=== PATIENT | female | born 1980 | race Caucasian/White ===

== ENCOUNTER → 2018-07-07 15:54 | Outpatient (CLI) | payer OTHER, SELFPAY ==
--- NOTE | 2018-07-07 15:57 | DI.MRI.S_ITS ---
PROCEDURE: MR CERVICAL SPINE WO CON INDICATIONS: Bilateral hand tingling, burning sensation. Headaches. TECHNIQUE: Noncontrast sagittal T1 spin echo and T2 fast spin echo, sagittal STIR, foraminal oblique sagittal T2 fast spin echo, and axial gradient echo or T2 fast spin echo through the cervical spine. COMPARISON: [facility], , SPINE CERVICAL 2 OR 3VW, 10/20/2015, 11:37. [facility], , SPINE CERVICAL 2 OR 3VW, 05/23/2016, 14:04. [facility], CR, CERVICAL SPINE 2 OR 3 VIEWS, 10/05/2015, 8:45. [facility], MR, C-SPINE W&WO CONTRAST, 07/11/2015, 11:21. FINDINGS: Image quality: Excellent. Alignment and Curvature: There is streaking of cervical curvature; otherwise normal bony alignment. Bone Marrow: Marrow signal is obscure by metallic artifacts from C3 to C7. There is anterior fusion at C4-C7. There is a disc prosthesis at the C3-C4. Spinal Cord: Visualized spinal cord has normal size and signal. No cerebellar tonsillar herniation. Paraspinous Soft Tissues: No paravertebral masses. Prevertebral soft tissues are normal in thickness. C2-C3: Mild loss of disc height and disc desiccation. There is minimal posterior disc bulge. Mild bilateral facet arthropathy. The central canal is minimally narrowed. No foraminal stenosis. No significant change from the last exam of 07/11/2015. C3-C4: Discectomy with a metallic disc prosthesis. Metallic artifacts partially obscures this area. Mild bilateral facet arthropathy. The central canal is moderately narrowed. Mild bilateral foraminal stenosis. Overall, there is improvement compared to the last exam on 07/11/2015. C4-C5: Surgically fused. Metallic artifacts partially obscures this area. Mild central canal stenosis. Mild bilateral foraminal stenosis. No significant change from the last exam of 07/11/2015. . C5-C6: Surgically fused. Metallic artifacts partially obscures this area. Mild central canal stenosis. Mild bilateral foraminal stenosis. No significant change from the last exam of 07/11/2015. C6-C7: Surgically fused. Metallic artifacts partially obscures this area. Mild central canal stenosis. Mild bilateral foraminal stenosis. No significant change from the last exam of 07/11/2015. C7-T1: Normal appearance. IMPRESSION: 1. Multilevel degenerative and postsurgical changes as described. 2. Multilevel central canal stenosis, moderate at C3-C4 and mild at multiple other levels. 3. Multilevel mild foraminal stenosis as described. Dictated by: Jaspal Bear M.D. on 07/07/2018 at 17:21 Approved by: Jaspal Bear M.D. on 07/07/2018 at 17:33
== END ==
PROVIDERS: Visit Provider Physical Medicine & Rehabilitation
DX: R51 Headache (principal); R20.2 Paresthesia of skin; M47.812 Spondylosis without myelopathy or radiculopathy, cervical region; M48.02 Spinal stenosis, cervical region; M79.2 Neuralgia and neuritis, unspecified; G89.29 Other chronic pain; Z98.1 Arthrodesis status; Z98.890 Other specified postprocedural states
CPT/HCPCS: 72141

== ENCOUNTER 2018-11-17 08:54 | Outpatient (CLI) | payer OTHER, SELFPAY ==
[2018-11-17] VITALS (8 sets, daily range): BP systolic 112–137; BP diastolic 67–84; PULSE 79–89; RESP 16–18; TEMP 36.8; O2SAT 99–100
--- NOTE | 2018-11-17 08:55 | DI.RAD.S_ITS ---
PROCEDURE: PAIN C/T INTERLAMINAR INJECT INDICATIONS: C7-T1 tl KATHY FINDINGS: Fluoroscopic spot filming was performed to verify placement of spinal needles at the C7-T1 level. Appropriate location(s) of the needle tip(s) was confirmed by injection of iodinated contrast. Dictated by: Isaiah Salazar M.D. on 11/17/2018 at 12:08 Approved by: Isaiah Salazar M.D. on 11/17/2018 at 12:09
[2018-11-17] MEDS: MIDAZOLAM 5 MG/5 ML VIAL IV (10:03)
[2018-11-17] MEDS: fentaNYL 100 MCG/2 ML INJ 50 MCG IV (10:03)
[2018-11-17] MEDS: DEXAMETHASONE 10 MG/ML VIAL 20 MG INJ (10:11)
[2018-11-17] MEDS: IOPAMIDOL 15 ML VIAL 3 ML INJ (10:11)
[2018-11-17] MEDS: LIDOCAINE 1% 20 ML INJ 5 ML INJ (10:11)
--- NOTE | 2018-11-17 10:15 | PC.NURSE ---
ASSISTING PT OFF TABLE AND TRANSPORTING TO POST PROC AREA IN STABLE CONDITION
--- NOTE | 2018-11-17 10:20 | PM.PROC.1 ---
Procedures Date/Time Date of procedure: 11/17/18 Time of procedure: 10:20 General Procedure description: PREOP DIAGNOSIS 1. CERVICAL STENOSIS, 2. CERVICAL HNP WITH UPPER EXTREMITY RADICULAR FEATURES, POST OP DIAGNOSIS 1. CERVICAL STENOSIS, 2. CERVICAL HNP WITH UPPER EXTREMITY RADICULAR FEATURES, PROCEDURES 1. FLUORSCOPICALLY GUIDED CONTRAST CONTROLLED INTERLAMINAR EPIDURAL STEROID INJECTION - C7/T1 TL KATHY, PHYSICIAN: Willy Umaña DO INDICATIONS: Brea is referred by for treatment of Cervical Stenosis. FINDINGS Cervical Stenosis due to disc deterioration and nerve root irritation and nerve root irritation DESCRIPTION OF PROCEDURE Fluoroscopically guided, contrast-controlled C7/T1 translaminar epidural steroid injection with conscious sedation. Following review of allergy and review of potential side effects and complications, including, but not necessarily limited to, infection, allergic reaction, local tissue breakdown, temporary as well as permanent nerve injury, stroke, paralysis, and possible , the patient indicated that patient understood and agreed to proceed. An informed consent document was signed by the patient, witnessed by a nurse, and placed in the patient's chart. Additionally, other treatment options including modalities, medications, and physical therapy were reviewed with the patient. After review of previous anaesthesic history and IV conscious sedation the patient was deemed safe to proceed with todays procedure with IV conscious sedation as ASA class II designation. Safety time-out was performed to confirm patient ID, procedure to be performed and site of procedure. IV sedation was accomplished with a combination of 5mg of Versed and 50mcg of Fentanyl administered by the RN after DO order, titrated to patient comfort during the course of the procedure while the patient remained responsive to all verbal commands. In the prone position, following sterile prep and drape of the cervical region, the C7/T1 translaminar space was identified fluoroscopically. The skin was anesthetized via a 25-gauge 1.5-inch needle with 1% lidocaine solution. At this point, a 25-gauge, 2.5-inch short bevel spinal needle was atraumatically introduced and advanced under fluoroscopic guidance into epidural space at the C7/T1 translaminar space. Depth was confirmed on lateral view. Radiological data, including multiple fluoroscopic views of the cervical spine, reveal a spinal needle at the C7/T1 translaminar space. Lateral views then show placement of the needle in the epidural space. Subsequent views show contrast material flowing superiorly and inferiorly in the epidural space. DSA fluoroscopy with live contrast injection, once again, confirmed no vascular or intrathecal uptake. At this point, using loss of resistance technique with saline and air, the epidural space was entered. Following negative aspiration, injection of approximately 1.5 cc of Isovue-200 with live fluoroscopy in the AP view confirmed epidural flow in the epidural space without vascular or intrathecal uptake observed. Subsequently, a test dose of 1 cc of 1% lidocaine solution was injected and patient was observed for two minutes without signs or symptoms of complications, including abdominal pain, shortness of breath, bilateral upper or lower extremity weakness, nausea and vomiting, prior to steroid injection. At this point, 2cc or 20mg of dexamethasone was then injected without incident. The patient tolerated the procedure well without signs or symptoms of complications prior to transfer to the recovery area for further monitoring The patient was then transferred to the recovery area where they were observed for an appropriate period of time after the injection. The patient reported a VAS score of 6 prior to the procedure and a post-procedure VAS of 0. Total Fluoroscopy Time: 23.2 seconds Total Conscious Sedation Time: 24min POST OP INSTRUCTIONS The patient was provided a Pain Log to continue to record their response to the target-specific procedure prior to follow-up visit with the referring provider. Additionally, specific post-injection care instructions and a contact number to our office were provided if concerns arise regarding possible complications associated with the procedure are suspected. Willy Umaña DO Complications: none
--- NOTE | 2018-11-17 10:25 | PC.NURSE ---
Returned from procedure awake and alert able to transfer from w/c to chair with standby assist. Resumed monitoring from Yancy JARRELL.
== END 2018-11-17 11:04 ==
LOC: RAD 08:54
PROVIDERS: PCP General Practice; Visit Provider Physical Medicine & Rehabilitation
DX: M48.02 Spinal stenosis, cervical region (principal); M50.13 Cervical disc disorder with radiculopathy, cervicothoracic region
CPT/HCPCS: 62321; 99152; 99153; J1100; J2250; J3010